=== PATIENT | male | born 1995 | race Two or more races ===

== ENCOUNTER 2024-03-16 15:04 | Emergency (ER) | payer OTHER ==
[~2024-03-16] VITALS: Ht 172.7 cm; Wt 95.9 kg
[2024-03-16 20:05] VITALS: BP 139/96; TEMP 97.3; O2SAT 98
[2024-03-16] MEDS ORDERED: IBUP-1022 PO (20:35)
== END 2024-03-16 20:41 | disposition home or self-care (01) ==
LOC: M ED 15:04
DX: S76.312A Strain of muscle, fascia and tendon of the posterior muscle group at thigh level, left thigh, initial encounter (principal); Y92.9 Unspecified place or not applicable; Y93.02 Activity, running; Y99.1 Military activity; Z79.1 Long term (current) use of non-steroidal anti-inflammatories (NSAID)